=== PATIENT | male | born 1990 | race Caucasian/White ===

== ENCOUNTER 2018-06-18 19:47 | Emergency (ER) | payer MEDICAID ==
[~2018-06-18] VITALS: Ht 185.4 cm; Wt 68.2 kg
--- NOTE | 2018-06-18 20:37 | NUR ---
Dr. Sainz wishes to consult with urology before an catheter attempt since he has had 4 attempts today and all have been unsucessful. patient has blood and clots coming from penis.
[2018-06-18] MEDS ORDERED: CefTRIAXone 2gm/D5W 50ml 50 ML IV ONE (21:00)
--- NOTE | 2018-06-18 21:25 | NUR ---
urologist is at pt bedside to scope the uretha, place a schneider, then irrigate the bladder
[2018-06-18] MEDS ORDERED: CIPR-230 PO (22:01)
[2018-06-18 22:02] VITALS: BP 84/54
[2018-06-18 22:35] LABS: CLARITY,URINE SLIGHTLY CLOUDY (Clear); COLOR,URINE RED (Yellow); GLUCOSE, URINE NEGATIVE (Neg); KETONES,URINE NEGATIVE (Neg); LEUKOCYTE ESTERASE ,URINE MODERATE (Neg); NITRITES, URINE POSITIVE (Neg); OCCULT BLOOD,URINE LARGE (Neg); PH,URINE 5.5 (4.8-8.0); PROTEIN,URINE 30 mg/dl (Neg); UROBILINOGEN,URINE 0.2 E.U/dL (0.2-1.0)
[2018-06-18 22:36] LABS: UA COLLECTION TYPE FOLEY CATH
[2018-06-18 23:04] LABS: BACTERIA,URINE FEW /HPF (Neg); MUCUS STRANDS FEW /LPF (Neg); RBC,URINE 20-50 /HPF (0-2); SQUAMOUS EPITHELIAL CELL,UR NONE SEEN /LPF (FEW)
--- NOTE | 2018-06-23 10:16 | NUR ---
I CALLED PT. 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 PT. IS NOT RUNNING ANY FEVERS. PT. INSTRUCTED THAT IF HE IS FEELING WORSE TO COME BACK AND BE SEEN AGAIN THAT THE CIPRO RX WE GAVE HIM..... SHOWES HE IS RESISTANT TO. AUTOCLAVE OPERATOR STATED THAT THEY HAVE AN APPOINTMENT AT [facility] IN [place] TODAY AT 1500... I WILL FAX THE CULTURE REPORT TO THE CLINIC SO IT IS THERE WHEN THEY ARRIVE.[phone]
== END 2018-06-18 23:11 | disposition home or self-care (01) ==
LOC: ER 19:48
DX: T83.098A Other mechanical complication of other urinary catheter, initial encounter (principal); R33.9 Retention of urine, unspecified; N36.5 Urethral false passage; R51 Headache; Z93.3 Colostomy status
CPT/HCPCS: 51700; 81001; 87077; 87088; 87186; 96365; 99284; J0696; 10060